=== PATIENT | female | born 1985 | race Two or more races ===

== ENCOUNTER 2024-12-04 16:27 | Emergency (ER) | payer MEDICAID, SELFPAY ==
[2024-12-04 16:33] VITALS: BP 158/99; PULSE 95; RESP 20; TEMP 37.3; O2SAT 100
--- NOTE | 2024-12-04 16:35 | XR_ITS ---
Examination: AP chest single view Technique one AP portable upright chest single view Exam date and time: December 04, 2024 1818 hours Comparison May 07, 2008 INDICATIONS: Onset chest pain today. FINDINGS: Underpenetrated chest film Normal heart size Lungs are clear. Mild osteopenia IMPRESSION: No active disease
--- NOTE | 2024-12-04 16:35 | EKG_ITS ---
[facility] Test Date: 2024-12-04 Pat Name: DARRELL MILIAN Department: Room: - Gender: Female [employer] Consultant: : 1985 Requested By: Leatha Easton Order Number: [id number] Reading MD: Leatha Easton Measurements Intervals [place] Rate: 98 P: 29 OR: 148 QRS: 32 QRSD: 72 T: -4 QT: 336 QTc: 430 Interpretive Statements SINUS RHYTHM NONSPECIFIC T-WAVE ABNORMALITY No previous ECG available for comparison /store/S0/[id number]/ecg/[id number].pdf
--- NOTE | 2024-12-04 16:38 | PD.EDADULT ---
ED General RME/HPI General Chief complaint: Chest Pain Stated complaint: CHEST PAIN Time Seen by Provider: 12/04/24 16:31 Arrival date/time: 12/04/24 16:27 RME / HPI RME / HPI narrative: DR. BAI MAIN ED EVALUATION: 39 year old female with no past medical history presents to the Emergency Department [facility] with complaint of chest pain. Pain is described as aching and rated mild to moderate in severity. Associated symptoms include mild shortness of breath. Related Data Home Medications ?Medication ?Instructions ?Recorded ?Confirmed Vits W-Ca,Fe,Fa(<1MG) 1 tab PO ##0 01/18/08 () Allergies Allergy/AdvReac Type Severity Reaction Status Date / Time NKA* Allergy Uncoded 02/21/12 16:28 Review of Systems Review of Systems Systems Reviewed: All systems reviewed, normal except as documented Narrative Review of Systems: GEN: No fever, no chills, no weight loss EYES: No discharge, no visual changes, no pain HEENT: No ear pain, no congestion, no sore throat PULM: + mild shortness of breath, no cough, no congestion CV: + chest pain, no dyspnea on exertion, no palpitations GI: No nausea, no vomiting, no diarrhea, no pain, no constipation : No frequency, no urgency and no dysuria MUSC/SKEL: No joint pain, no back pain SKIN: No rash PSYCH: No hallucinations, no depression HEME/LYMPH: No easy bleeding or bruising tendencies NEURO: No weakness, no headache Past Medical History Social History SMOKING STATUS: Never smoker SUBSTANCE USE: does not use ALCOHOL: Never ED Exam Narrative Physical exam: GENERAL APPEARANCE: alert and oriented x 4, well-developed, well-nourished VITALS: All vitals were reviewed and the pulse ox is 100% on 6 L/min via a nasal cannula. HEENT: Normocephalic, atraumatic; pupils equal, round, reactive to light; EOMI; mucous membranes pink, moist; oropharynx clear NECK: Supple LUNGS: CTABL; no wheezes, no rales, no rhonchi HEART: Regular rate, regular rhythm; normal S1, S2; no murmurs ABDOMEN: non distended; normal BS; soft, no tenderness, no guarding, no rebound; no masses, no organomegaly, no hernia BACK: no CVA tenderness EXTREMITIES: atraumatic; no edema NEUROLOGIC: awake; alert and oriented x4; cranial nerves II-XII grossly intact; no focal sensory or motor deficits PSYCHIATRIC: appropriate mood and affect SKIN: warm, dry, normal color; no rashes Course Course Course Narrative: 1800: Patient was signed out to Dr. Mauricio. Past medical, surgical, social and family history reviewed. Vitals and home medications reviewed. Results and treatment plan discussed. They will assume the care of the patient at this time and will follow the patient, pending diagnostic test and final disposition. Quality Measures none Orders Category Date Time Status Records And Information Manager NOW Care 12/04/24 16:35 Completed EKG (ED ONLY) *Do not use* NOW Care 12/04/24 16:35 Completed EKG (ED Only) Stat Exams 12/04/24 16:35 Draft XR chest 1V portable Stat Exams 12/04/24 16:35 Completed B-Type Natriuretic Peptide Stat Lab 12/04/24 16:49 Completed CBC Stat Lab 12/04/24 16:49 Completed Comprehensive Metabolic Panel Stat Lab 12/04/24 16:49 Completed D-Dimer Stat Lab 12/04/24 21:21 Completed Lipase Stat Lab 12/04/24 16:49 Completed Magnesium Stat Lab 12/04/24 16:49 Completed Partial Thromboplastin Time Stat Lab 12/04/24 16:49 Completed Prothrombin Time with INR Stat Lab 12/04/24 16:49 Completed Troponin I Stat Lab 12/04/24 16:49 Completed Troponin I Stat Lab 12/04/24 21:21 Completed Ketorolac Inj [Toradol Inj] Med 12/04/24 22:35 Discontinued 30 mg IVP X1 ONE Magnesium Sulfate 1 gm Ivpb [Magnesium Sulfate Ivpb] Med 12/04/24 22:36 Discontinued 1 gm in 100 ml IV X1 Ondansetron Inj [Zofran Inj] Med 12/04/24 16:58 Discontinued 4 mg IV X1 ONE Vital Signs Vital signs: Vital Signs Temperature 99.2 F 12/04/24 16:33 Pulse Rate 95 12/04/24 16:33 Respiratory Rate 20 12/04/24 16:33 Blood Pressure 158/99 H 12/04/24 16:33 Pulse Oximetry (%) 100 12/04/24 16:33 Oxygen Delivery Method Nasal Cannula 12/04/24 16:33 Oxygen Flow Rate 6 12/04/24 16:33 MDM Patient data External records reviewed:: EMS form Clinical information provided by:: patient and EMS Social determinants that could affect healthcare access:: none Patient has the following chronic illnesses:: Denies any PMHx, surgeries, daily medications, or known allergies. How is presenting disease/condition affected by chronic disease/condition?: no chronic disease Evaluation data The following diagnostics were reviewed and interpreted by me:: lab results, radiology exam(s) and EKG tracing(s) Lab and/or radiology exams considered but not ordered:: none Interpretation Summary: Pending results. Medications Medications considered but not ordered:: none Medication administrations:: Medication Administration History Discontinued Medications Magnesium Sulfate/Dextrose (Magnesium Sulfate Ivpb) 1 gm in 100 mls @ 100 mls/hr IV X1 ONE Stop: 12/04/24 23:35 Last Admin: 12/04/24 22:52 Dose: 100 mls/hr Documented By: VIOLETTE Ketorolac Tromethamine (Ketorolac Inj 30 Mg/Ml Vial) 30 mg IVP X1 ONE Stop: 12/04/24 22:36 Last Admin: 12/04/24 22:52 Dose: 30 mg Documented By: VIOLETTE Ondansetron HCl (Ondansetron Inj 2 Mg/Ml Inj 2 Ml) 4 mg IV X1 ONE; Protocol Stop: 12/04/24 16:59 Last Admin: 12/04/24 19:56 Dose: 4 mg Documented By: NIMISHA see above Consultations Consultation(s) initiated? (list below): No Diagnosis Differential Diagnosis ED Complaint MDM: Acute coronary syndrome, CA, PE, pneumonia Most likely diagnosis given after review of the tests above:: No official diagnoses at this time, still pending diagnostic tests. Patient signout to the percussion instrument tuner provider. Admission Indicated Admission indicated?: not indicated Explain why admission is indicated or not indicated:: No final disposition plan at this time, still pending diagnostic tests. Patient signout to the percussion instrument tuner provider. Admission Request Was there a request for admission?: No Disposition Plan Disposition Plan: other (specify) (Patient signout to the percussion instrument tuner provider.) Medical Decision Making MDM Narrative MDM Narrative: Ashley Pro, hui scribing for and in the presence of Dr. Bai. Differential Diagnosis Differential Diagnosis: Acute coronary syndrome, CA, PE, pneumonia Lab Data 12/04/24 16:49 12/04/24 16:49 Labs: Lab Results 12/04/24 12/04/24 Range/Units 16:49 21:21 WBC 11.8 H (3.6-11.0) Thou/mm3 RBC 4.37 (4.00-5.20) Miln/mm3 Hgb 12.7 (12.0-16.0) g/dL Hct 35.4 L (36.0-46.0) % MCV 81 (80-100) fL MCH 29.1 (25.0-35.0) pg MCHC 35.9 (31.0-37.0) g/dl RDW Std Deviation 35.6 L (36.4-46.3) fL Plt Count 265 (140-440) Thou/mm3 Neut % (Auto) 61 (37-80) % Lymph % (Auto) 33 (10-50) % [place] % (Auto) 5 (0-12) % Eos % (Auto) 1 (0-10) % Baso % (Auto) 0 (0-2.5) % Neut # (Auto) 7.2 (1.8-7.7) Thou/mm3 Lymph # (Auto) 3.9 (1.0-4.8) Thou/mm3 [place] # (Auto) 0.6 (0.0-0.8) Thou/mm3 Eos # (Auto) 0.1 (0.0-0.5) Thou/mm3 Baso # (Auto) 0.0 (0.0-0.2) Thou/mm3 Immature Gran # (Auto) 0.04 H (0.00-0.00) Thou/mm3 Absolute Nucleated RBC 0.00 (0.00-0.00) Thou/mm3 Immature Gran % 0 (0-0) % Nucleated RBC % 0 (0) /100 WBC PT 10.9 (9.0-12.2) Seconds INR 1.0 (0.9-1.3) APTT 25.1 (22.0-36.0) Seconds D-Dimer < 250 (<600) ng/mL Sodium 134 L (136-145) mMol/L Potassium 3.5 (3.4-5.1) mMol/L Chloride 99 (98-107) mMol/L Carbon Dioxide 26.6 (20.0-31.0) mMol/L Anion Gap 8 (7-16) BUN 9 (9-23) mg/dL Creatinine 0.8 (0.6-1.3) mg/dL Estim Creat Clear Calc Not Performed. eGFR > 60 (60 - ) See Note BUN/Creatinine Ratio 11 L (12-20) Ratio Glucose 175 H (74-106) mg/dL Calculated Osmolality 270 L (275-295) Calcium 10.2 (8.3-10.6) mg/dL Corrected Calcium 10.2 H (8.5-10.1) mg/dL Magnesium 1.5 L (1.6-2.6) mg/dL Total Bilirubin 0.5 (0.3-1.2) mg/dL AST < 8 (0-34) U/L ALT 12 (10-49) U/L Alkaline Phosphatase 68 (46-116) U/L Troponin I < 0.002 < 0.002 (0.0-0.045) ng/mL B-Natriuretic Peptide 20 (0-100) pg/mL Total Protein 7.8 (5.7-8.2) gm/dL Albumin 4.9 (3.5-5.0) gm/dL Globulin 2.9 (2.3-3.5) gm/dL Albumin/Globulin Ratio 1.7 (1.2-2.2) Lipase 36 (12-53) U/L Discharge Plan Plan Patient Disposition: HOME (Self Care) Patient condition on transfer: Stable Prescriptions/Referrals Prescriptions/Med Rec: No Action Vits W-Ca,Fe,Fa(<1MG) () 1 TAB tablet 1 tab PO Qty: 0 Patient Comments: 1 DAILY Referrals: No Primary/Family,Physician [Primary Care Provider] - In 1 week Problem List Clinical Impression: Atypical chest pain Patient/Caregiver Discharge Instructions Education Materials: ED Chest Pain, Uncertain Cause Additional Instructions: Return to the emergency department for worsening symptoms, or any other concerns. You can take [id number] Tylenol and/or Motrin as needed for the next 1 to 2 days. Print Language: Amharic Stand Alone Forms: Donna Award Info., Patient Portal Info Letter
[2024-12-04 16:57] LABS: Basophils % (Auto) 0 % (0-2.5); Eosinophils # (Auto) 0.1 Thou/mm3 (0.0-0.5); Eosinophils % (Auto) 1 % (0-10); Hematocrit 35.4 % (36.0-46.0); Hemoglobin 12.7 g/dL (12.0-16.0); Immature Granulocytes % (Auto) 0 % (0-0); Immature Granulocytes Auto 0.04 Thou/mm3 (0.00-0.00); Lymphocytes # (Auto) 3.9 Thou/mm3 (1.0-4.8); Lymphocytes % (Auto) 33 % (10-50); Mean Corpuscular HGB Conc 35.9 g/dl (31.0-37.0); Mean Corpuscular Hemoglobin 29.1 pg (25.0-35.0); Mean Corpuscular Volume 81 fL (80-100); Monocytes # (Auto) 0.6 Thou/mm3 (0.0-0.8); Monocytes % (Auto) 5 % (0-12); Neutrophils # (Auto) 7.2 Thou/mm3 (1.8-7.7); Neutrophils % (Auto) 61 % (37-80); Nucleated Red Blood Cell % 0 /100 WBC (0); Platelet Count 265 Thou/mm3 (140-440); RDW Standard Deviation 35.6 fL (36.4-46.3); Red Blood Count 4.37 Miln/mm3 (4.00-5.20); White Blood Count 11.8 Thou/mm3 (3.6-11.0)
[2024-12-04 17:12] LABS: Partial Thromboplastin Time 25.1 Seconds (22.0-36.0); Prothrombin Time 10.9 Seconds (9.0-12.2)
[2024-12-04 17:13] LABS: B-Type Natriuretic Peptide 20 pg/mL (0-100)
[2024-12-04 17:24] LABS: Alanine Aminotransferase 12 U/L (10-49); Albumin, Serum 4.9 gm/dL (3.5-5.0); Albumin/Globulin Ratio 1.7 (1.2-2.2); Alkaline Phosphatase 68 U/L (46-116); Anion Gap 8 (7-16); Aspartate Amino Transferase < 8 U/L (0-34); BUN/Creatinine Ratio 11 Ratio (12-20); Bilirubin,Total 0.5 mg/dL (0.3-1.2); Blood Urea Nitrogen 9 mg/dL (9-23); Calcium 10.2 mg/dL (8.3-10.6); Calcium (Corrected) 10.2 mg/dL (8.5-10.1); Carbon Dioxide 26.6 mMol/L (20.0-31.0); Chloride 99 mMol/L (98-107); Creatinine (Component) 0.8 mg/dL (0.6-1.3); Globulin 2.9 gm/dL (2.3-3.5); Glucose 175 mg/dL (74-106); Lipase 36 U/L (12-53); Magnesium 1.5 mg/dL (1.6-2.6); Osmolality,Calculated 270 (275-295); Potassium 3.5 mMol/L (3.4-5.1); Sodium 134 mMol/L (136-145); Total Protein 7.8 gm/dL (5.7-8.2); Troponin I < 0.002 ng/mL (0.0-0.045); eGFR > 60 See Note
--- NOTE | 2024-12-04 17:59 | PD.EDADDENDU ---
Emergency Room Addendum <Ashley Laguerre - Last Filed: 12/04/24 21:54> Addendum Narrative: 1800: Care assumed from Dr. Gilliland, the previous shift emergency physician. Past medical, surgical, social and family history reviewed. Vitals and home medications reviewed. I will assume the care of the patient at this time, pending diagnostic tests and final disposition. Please refer to the emergency department record for history and examination from initial visit.? Physical exam by me shows patient under no acute distress at this time. EKG: Dated 12/04/2024 at 1803 hours. Interpreted by me: sinus rhythm, rate 98, no STEMI RADIOLOGY Procedure(s): XR chest 1V portable Accession Number(s): [id number] cc: Zachary Latham MD; Leatha Gilliland MD~ Examination: AP chest single view Technique one AP portable upright chest single view Exam date and time: December 04, 2024 1818 hours Comparison May 07, 2008 INDICATIONS: Onset chest pain today. FINDINGS: Underpenetrated chest film Normal heart size Lungs are clear. Mild osteopenia IMPRESSION: No active disease Dictated By: Zachary Latham MD <Rosalind Lopez - Last Filed: 12/05/24 00:20> Addendum Narrative: 1800: Care assumed from Dr. iGlliland, the previous shift emergency physician. Past medical, surgical, social and family history reviewed. Vitals and home medications reviewed. I will assume the care of the patient at this time, pending diagnostic tests and final disposition. Please refer to the emergency department record for history and examination from initial visit.? Physical exam by me shows patient under no acute distress at this time. EKG: Dated 12/04/2024 at 1803 hours. Interpreted by me: sinus rhythm, rate 98, no STEMI Patient received IV magnesium, toradol, and Zofran. Patient feels better and is comfortable going home. RADIOLOGY Procedure(s): XR chest 1V portable Accession Number(s): [id number] cc: Zachary Latham MD; Leatha Gilliland MD~ Examination: AP chest single view Technique one AP portable upright chest single view Exam date and time: December 04, 2024 1818 hours Comparison May 07, 2008 INDICATIONS: Onset chest pain today. FINDINGS: Underpenetrated chest film Normal heart size Lungs are clear. Mild osteopenia
[2024-12-04 18:12] VITALS: BP 127/97; PULSE 88; RESP 20; TEMP 36.8; O2SAT 97
[2024-12-04 18:13] VITALS: PULSE 100; RESP 18; O2SAT 96
[2024-12-04 18:44] VITALS: PULSE 91
[2024-12-04 18:45] VITALS: BMI 40.9
[2024-12-04] MEDS: ONDANSETRON INJ 2 MG/ML INJ 2 ML 4 MG IV (19:56)
[2024-12-04 19:59] VITALS: BP 141/91; PULSE 89; RESP 20; TEMP 37.3; O2SAT 99
[2024-12-04 22:02] LABS: Troponin I < 0.002 ng/mL (0.0-0.045)
[2024-12-04 22:08] VITALS: BP 115/80; PULSE 87; RESP 17; TEMP 37.1; O2SAT 100
[2024-12-04 22:21] LABS: D-Dimer < 250 ng/mL (<600)
[2024-12-04] MEDS: Magnesium Sulfate 1 gm Ivpb 1 GM/100 ML BAG IV (22:52)
[2024-12-04] MEDS: KETOROLAC INJ 30 MG/ML VIAL IVP (22:52)
[2024-12-05 00:22] VITALS: BP 118/81; PULSE 85; RESP 20; TEMP 37.1; O2SAT 96
== END 2024-12-05 00:24 | disposition home or self-care (01) ==
PROVIDERS: Emergency Medicine; Emergency Provider Emergency Medicine
DX: R07.89 Other chest pain (principal); R94.31 Abnormal electrocardiogram [ECG] [EKG]
CPT/HCPCS: 36415; 71045; 80053; 83690; 83735; 83880; 84484; 85025; 85379; 85610; 85730; 93005; 96374; 96375; 99284; J1885; J2405; J3475